=== PATIENT | female | born 1940 | race Caucasian/White ===

== ENCOUNTER 2018-07-10 13:20 | Emergency (ER) | payer OTHER ==
[2018-07-10 13:32] VITALS: PULSE 61; TEMP 98; BMI 20.4
--- NOTE | 2018-07-10 13:35 | PDOC ---
History of Present Illness - General Chief Complaint: Lightheaded Stated Complaint: LIGHTHEADED Time Seen by Provider: 07/10/18 13:35 - History of Present Illness Initial Comments: 07/10/18 13:35 Ms. Barney is a 77 yo female w/ pmh of recent bunion removal on right foot who presents for evaluation of facial and bilateral arm tingling. She reports she had associated sweating and became short of breath with this. Also reports generalized weakness at this time. Reports this occurred at 10 am and that symptoms have since resolved and that she has never had something like this before but wanted to get checked out. Patient also endorses 3 episodes of diarrhea following this. Patient also reports she was placed on levofloxacin and cefoxitin yesterday prophylactically on surgical f/u from bunion surgery. The patient denies chest pain, headache and dizziness. Denies fever, chills, nausea, vomit, and constipation. Denies dysuria, frequency, urgency and hematuria. Allergies: Codeine Past History - Past Medical History Allergies/Adverse Reactions: Allergies Allergy/AdvReac Type Severity Reaction Status Date / Time codeine Allergy Verified 07/10/18 13:29 Home Medications: Ambulatory Orders Acetaminophen [Tylenol] 650 mg PO QID PRN 07/10/18 Cefuroxime Axetil [Ceftin -] 500 mg PO Q12H 07/10/18 levoFLOXacin [Levaquin -] 500 mg PO DAILY 07/10/18 COPD: No - Suicide/Smoking/Psychosocial Hx Smoking History: Never smoked Review of Systems - Review of Systems Comments:: 07/10/18 13:36 GENERAL/CONSTITUTIONAL: No fever or chills. No weakness. HEAD, EYES, EARS, NOSE AND THROAT: No change in vision. No ear pain or discharge. No sore throat. CARDIOVASCULAR: +Intermittent shortness of breath with sweating and tingling as described. RESPIRATORY: No cough, wheezing, or hemoptysis. GASTROINTESTINAL: +3 episdoes of diarrhea. No nausea, vomiting, or constipation. GENITOURINARY: No dysuria, frequency, or change in urination. MUSCULOSKELETAL: No joint or muscle swelling or pain. No neck or back pain. SKIN: No rash NEUROLOGIC: No headache, vertigo, loss of consciousness, or change in strength/ sensation. ENDOCRINE: No increased thirst. No abnormal weight change HEMATOLOGIC/LYMPHATIC: No anemia, easy bleeding, or history of blood clots. ALLERGIC/IMMUNOLOGIC: No hives or skin allergy. *Physical Exam - Vital Signs Last Vital Signs Temp Pulse Resp BP Pulse Ox 98 F 61 16 132/68 99 07/10/18 13:22 07/10/18 13:22 07/10/18 13:22 07/10/18 13:22 07/10/18 13:22 - Physical Exam Comments: 07/10/18 13:36 GENERAL: Awake, alert, and fully oriented, in no acute distress HEAD: No signs of trauma, normocephalic, atraumatic EYES: PERRLA, EOMI, sclera anicteric, conjunctiva clear ENT: Auricles normal inspection, hearing grossly normal, nares patent, oropharynx clear without exudates. Moist mucosa NECK: Normal ROM, supple, no lymphadenopathy, JVD, or masses LUNGS: No distress, speaks full sentences, clear to auscultation bilaterally HEART: Regular rate and rhythm, normal S1 and S2, no murmurs, rubs or gallops, peripheral pulses normal and equal bilaterally. ABDOMEN: Soft, nontender, normoactive bowel sounds. No guarding, no rebound. No masses EXTREMITIES: Normal inspection, Normal range of motion, no edema. No clubbing or cyanosis. NEUROLOGICAL: Cranial nerves II through XII grossly intact. Normal speech, normal gait, no focal sensorimotor deficits SKIN: Warm, Dry, normal turgor, no rashes or lesions noted. Heart Score/ECG Review - History History: Slightly suspicious - Electrocardiogram EKG: Normal - Age Age: >/= 65 - Risk Factors Based on the list above the patient has:: No risk factors known ED Treatment Course - LABORATORY CBC & Chemistry Diagram: 07/10/18 14:25 07/10/18 14:25 Medical Decision Making - Medical Decision Making 07/10/18 14:21 Ms. Barney is a 77 yo female w/ pmh as described who presents for evaluation of shortness of breath / weakness earlier today. Patient currently well appearing and endorsing no acute complaints at this time. Exam completely benign with no trace of reported symptoms. 07/10/18 16:21 Patient EKG regular rate, regular rhythm, normal access, normal intervals, no ST elevations or depressions - RBBB noted. Non-concerning EKG. Will await labs and dispo accordingly. 07/10/18 17:33 Labs grossly unconcerning as below. No concern for acute process at this time. Suspect vaso-vagal episode as etiology of symptoms. Discharging to home. Laboratory Results - last 24 hr 07/10/18 07/10/18 07/10/18 14:25 14:25 15:49 WBC 5.2 RBC 4.04 Hgb 12.4 Hct 36.9 MCV 91.2 MCH 30.6 MCHC 33.5 RDW 13.3 Plt Count 311 MPV 7.8 Absolute Neuts (auto) 3.8 Neutrophils % 73.9 Lymphocytes % 17.4 Monocytes % 7.0 Eosinophils % 1.2 Basophils % 0.5 Nucleated RBC % 0 Sodium 138 Potassium 3.9 Chloride 103 Carbon Dioxide 28 Anion Gap 7 L BUN 16 Creatinine 0.9 Creat Clearance w eGFR > 60 Random Glucose 100 Calcium 8.5 Total Bilirubin 0.7 AST 22 ALT 23 Alkaline Phosphatase 94 Total Protein 6.5 Albumin 3.3 L Urine Color Straw Urine Appearance Clear Urine pH 7.0 Ur Specific [place] 1.008 Urine Protein Negative Urine Glucose (UA) Negative Urine Ketones Negative Urine Blood Negative Urine Nitrite Negative Urine Bilirubin Negative Urine Urobilinogen Negative Ur Leukocyte Esterase Negative *DC/Admit/Observation/Transfer Diagnosis at time of Disposition: Vaso vagal episode - Discharge Dispostion Disposition: HOME - Referrals Referrals: Uzma Bhardwaj MD [Primary Care Provider] - - Patient Instructions Printed Discharge Instructions: DI for Dizziness-Nonvertigo Additional Instructions: You were evaluated today in the ER for your tingling and weakness episode. No emergent findings were found at this time and labs were normal. Please follow- up with primary care provider for further evaluation in 1-2 days. Return to ER if any further weakness, tingling, or other further concerning symptoms. - Post Discharge Activity
[2018-07-10 14:36] LABS: BASO % 0.5 % (0-2.0); EOS % 1.2 % (0-4.5); HEMATOCRIT 36.9 % (32.4-45.2); HEMOGLOBIN 12.4 GM/dL (10.7-15.3); LYMPH % 17.4 % (8-40); MCH 30.6 pg (25.7-33.7); MCHC 33.5 g/dl (32.0-36.0); MEAN CELL VOLUME 91.2 fl (80-96); MEAN PLT VOLUME 7.8 fl (7.5-11.1); NEUT % 73.9 % (42.8-82.8); PLATELET COUNT 311 K/MM3 (134-434); RBC 4.04 M/mm3 (3.60-5.2); RDW 13.3 % (11.6-15.6); WHITE BLOOD COUNT 5.2 K/mm3 (4.0-10.0)
--- NOTE | 2018-07-10 14:37 | PDOC ---
Attending Attestation - Resident Resident Name: Jamal Curran - ED Attending Attestation I have performed the following: I have examined & evaluated the patient, The case was reviewed & discussed with the resident, I agree w/resident's findings & plan, Exceptions are as noted - HPI HPI: 07/10/18 14:29 77y F recent bunion surgery presents with tingling in her forehead, arms and legs bilaterally around 10am, associated with diaphoresis, and sob and generalized weakness. Episode lasted for approx 30 minutes before resolving. it was associated with 3 episodes of watery diarrhea afterwards. since then she has felt fine - no associated cp, sob, abd pain, melena, bpr, increased toe pain , fever/chills. PT curently asymptomatic GENERAL: The patient is awake, alert, and fully oriented, Nontoxic - in no acute distress. LUNGS: Breath sounds equal, clear to auscultation bilaterally. No wheezes, no rhonchi, no rales. HEART: Regular rate and rhythm, normal S1 and S2 without murmur, rub or gallop. ABDOMEN: Soft, nontender, normoactive bowel sounds. No guarding, no rebound. . No CVA tenderness EXTREMITIES: Normal range of motion, no edema. NEUROLOGICAL: No facial assymetry, Normal speech, moving all 4 extremities spontenosly and symemtrically PSYCH: Normal mood, normal affect. SKIN: Warm, Dry, normal turgor, ddx - suspec vagal episode will obtain blood wrok to r/o anemia, metabolic dernagement, ua to r/o uti will reassess anticiapte dc with pmd fu if w/o neg - Physicial Exam PE: 07/10/18 20:28 nawaf nieto - Medical Decision Making 07/10/18 20:28 see above Heart Score/ECG Review - ECG Impressions Comment:: 07/10/18 17:27 Twelve-lead EKG was performed and reviewed by me. There is normal sinus rhythm with a rate of 56 Right bundle-branch block
[2018-07-10 15:20] LABS: ALBUMIN 3.3 g/dl (3.4-5.0); ALK PHOS 94 U/L (45-117); ANION GAP 7 MMOL/L (8-16); BILIRUBIN,TOTAL 0.7 mg/dL (0.2-1.0); BLOOD UREA NITROGEN 16 mg/dL (7-18); CALCIUM 8.5 mg/dL (8.5-10.1); CHLORIDE 103 mmol/L (98-107); CO2 28 mmol/L (21-32); CREATININE 0.9 mg/dL (0.55-1.02); GLUCOSE,RANDOM 100 mg/dL (74-106); POTASSIUM 3.9 mmol/L (3.5-5.1); SGOT/AST 22 U/L (15-37); SGPT/ALT 23 U/L (12-78); SODIUM 138 mmol/L (136-145); TOT PROT 6.5 g/dl (6.4-8.2)
[2018-07-10 16:18] LABS: URINE APPEARANCE CLEAR; URINE BILIRUBIN NEGATIVE (<2.0 mg/dL); URINE COLOR STRAW; URINE GLUCOSE (UA) NEGATIVE (NEGATIVE); URINE KETONE NEGATIVE (NEGATIVE); URINE LEUK ESTERASE NEGATIVE (NEGATIVE); URINE NITRITE NEGATIVE (NEGATIVE); URINE PROTEIN NEGATIVE (NEGATIVE); URINE UROBILINOGEN NEGATIVE mg/dL (0.2-1.0)
[2018-07-10 17:41] VITALS: BP 156/76
--- NOTE | 2018-07-11 09:18 | EKG ---
Test Reason : Blood Pressure : / mmHG Vent. Rate : 056 BPM Atrial Rate : 056 BPM P-R Int : 148 ms QRS Dur : 128 ms QT Int : 478 ms P-R-T Axes : 058 077 028 degrees QTc Int : 461 ms SINUS BRADYCARDIA RIGHT BUNDLE BRANCH BLOCK ABNORMAL ECG NO PREVIOUS ECGS AVAILABLE Confirmed by EZEKIEL STACK MD ([id number]) on 07/11/2018 9:17:50 AM Referred By: Confirmed By:EZEKIEL STACK MD
== END 2018-07-10 17:54 | disposition home or self-care (01) ==
LOC: JER 13:20
DX: R55 Syncope and collapse (principal); Z98.890 Other specified postprocedural states
CPT/HCPCS: 36415; 80053; 81003; 85025; 93005; 93010; 99282-25